=== PATIENT | female | born 1945 | race Caucasian/White ===

== ENCOUNTER → 2018-08-04 10:55 | Outpatient (CLI) | payer MEDICARE, OTHER, SELFPAY ==
--- NOTE | 2018-08-04 11:00 | DI.RAD.S_ITS ---
PROCEDURE: XR LUMBAR SPINE MIN 4V INDICATIONS: Foraminal stenosis with left L4 radiculopathy TECHNIQUE: 5 views of the lumbar spine were acquired. COMPARISON: None. FINDINGS: Bones: 5 nonrib-bearing vertebrae are present. There is mild rotational sclerosis. There is straightening of lumbar curvature with loss of normal lordosis. Grade 1 anterolisthesis of L2 on L3 and L3 on L4. No vertebral body compression fractures. No suspicious bony lesions. There is severe degenerative disc disease with disc space narrowing, endplate sclerosis and degenerative spurring at L2-L3, L3-L4 and L4-L5. Severe facet arthropathy is present at L4-L5 and L5-S1. Large lateral osteophytes are noted at L2-L3, L3-L4 and L4-L5. Soft tissues: Overlying bowel gas pattern is normal. No suspicious soft tissue calcifications. Oblique images: No pars defects. IMPRESSION: Severe degenerative disc and facet disease in lumbar spine. Dictated by: Jean-Pierre Jurado M.D. on 08/04/2018 at 13:44 Approved by: Jean-Pierre Jurado M.D. on 08/04/2018 at 14:27
== END ==
PROVIDERS: Visit Provider Physical Medicine & Rehabilitation
DX: M51.16 Intervertebral disc disorders with radiculopathy, lumbar region (principal); M51.17 Intervertebral disc disorders with radiculopathy, lumbosacral region; M47.26 Other spondylosis with radiculopathy, lumbar region; M47.27 Other spondylosis with radiculopathy, lumbosacral region; M99.83 Other biomechanical lesions of lumbar region
CPT/HCPCS: 72110; 99214

== ENCOUNTER → 2018-08-17 10:18 | Outpatient (CLI) | payer MEDICARE, OTHER, SELFPAY ==
--- NOTE | 2018-08-17 10:21 | DI.MRI.S_ITS ---
PROCEDURE: MR LUMBAR SPINE WO CON INDICATIONS: Foraminal stenosis with left L4 radiculopathy TECHNIQUE: Noncontrast sagittal T1 spin echo and T2 fast echo, sagittal STIR, axial T1 and T2 fast spin echo through the lumbar spine. In cases with scoliosis, additional coronal T2 fast spin echo may be performed. COMPARISON: [facility], CR, XR LUMBAR SPINE MIN 4V, 08/04/2018, 10:49. FINDINGS: Image quality: Excellent. Alignment and Curvature: There is mild grade 1 anterolisthesis at the L2-L3 level. No definite associated pars defects are seen. Minimal to mild anterolisthesis is seen at L3-L4. Minimal retrolisthesis is seen at L4-L5. Bone Marrow: Marrow is of normal overall signal. No acute vertebral body compression fractures. Spinal Cord: Conus medullaris terminates at the L1 level. Visualized cord demonstrates normal signal and size. Paraspinous Soft Tissues: No paravertebral masses. T12-L1: The disc height is well-preserved. Loss of disc signal is seen at this level. Mild generalized disc bulge is seen. There is mild left-sided and no significant right-sided neural foraminal narrowing seen. No significant central canal narrowing is seen. L1-L2: The disc height is well-preserved. Loss of disc signal is seen at this level. Mild to moderate disc bulge is seen. Moderate facet joint hypertrophy is seen. There is moderate bilateral neural foraminal narrowing seen, left worse than right. Moderate central canal narrowing is seen. L2-L3: Moderate to severe loss of disc height and disc signal are seen. Endplate irregularity is seen. Reactive marrow endplate changes are seen, which demonstrate mixed T1 weighted and T2-weighted signal, and are attributed to a combination of edema and fatty metaplasia (Modic type I and Modic type II changes). Moderate generalized disc bulge is seen is seen, which is eccentric to the left. Prominent facet hypertrophy is seen, with associated moderate hypertrophy of the ligamentum flavum. There is moderate right-sided and moderate to severe left-sided neural foraminal narrowing seen. Mass effect with flattening can be seen upon the exiting left L2 nerve root. There is severe central canal narrowing seen, as on series 5 image 14. L3-L4: Moderate to severe loss of disc height and disc signal can be seen on the right side. Endplate irregularity is seen. Reactive marrow endplate changes are seen, which demonstrate mixed T1 weighted and T2-weighted signal, and are attributed to a combination of edema and fatty metaplasia (Modic type I and Modic type II changes). Moderate to prominent disc bulge is seen, which is eccentric to the right side. There is moderate to severe bilateral neural foraminal narrowing seen, right worse than left. There is a degree of impingement seen upon the exiting nerve roots. Severe central canal narrowing is seen, as on series 5 image 19. L4-L5: Moderate to severe loss of disc height and disc signal are seen. Endplate irregularity is seen. Small Schmorl's nodes are seen at the inferior endplate of L4, without acute features. Moderate prominence disc bulge is seen, which is eccentric to the right. There is at least moderate left-sided and moderate to severe right-sided neural foraminal narrowing seen. There is a degree of impingement seen upon the exiting nerve roots. There is at least moderate central canal narrowing seen. L5-S1: The disc height is well-preserved. Loss of disc signal is seen at this level. Mild to moderate disc bulge is seen. Mild to moderate facet hypertrophy is seen. There is moderate right-sided and mild left-sided neural foraminal narrowing seen. Mild central canal narrowing is seen. IMPRESSION: Multiple levels of lumbar spine degenerative change are seen, which are most prominent at the L2-L3 and L3-L4 levels. Dictated by: Jose López M.D. on 08/17/2018 at 11:56 Approved by: Jose López M.D. on 08/17/2018 at 12:04
== END ==
PROVIDERS: Visit Provider Physical Medicine & Rehabilitation
DX: M51.16 Intervertebral disc disorders with radiculopathy, lumbar region (principal); M51.17 Intervertebral disc disorders with radiculopathy, lumbosacral region; M48.07 Spinal stenosis, lumbosacral region; M48.061 Spinal stenosis, lumbar region without neurogenic claudication; M99.83 Other biomechanical lesions of lumbar region
CPT/HCPCS: 72148

== ENCOUNTER 2018-09-20 13:03 | Outpatient (CLI) | payer MEDICARE, OTHER, SELFPAY ==
[2018-09-20] VITALS (8 sets, daily range): BP systolic 89–162; BP diastolic 33–68; PULSE 67–75; RESP 14–18; TEMP 36.2; O2SAT 96–100
--- NOTE | 2018-09-20 13:08 | DI.RAD.S_ITS ---
PROCEDURE: PAIN L INTERLAMINAR/CAUDAL INJ INDICATIONS: RADICULOPATHY FINDINGS: Fluoroscopic spot filming was performed to verify placement of spinal needles at the L3-L4 level(s), as labeled on the films. Appropriate location(s) of the needle tip(s) was confirmed by injection of iodinated contrast. IMPRESSION: Fluoroscopy for pain management. Dictated by: Jean-Pierre Jurado M.D. on 09/20/2018 at 17:18 Approved by: Jean-Pierre Jurado M.D. on 09/20/2018 at 17:19
[2018-09-20] MEDS: MIDAZOLAM 5 MG/5 ML VIAL IV (14:09)
[2018-09-20] MEDS: methylPREDNISolone acetate 80 MG/ML VIAL INJ (14:13)
[2018-09-20] MEDS: DEXAMETHASONE 10 MG/ML VIAL 20 MG INJ (14:13)
[2018-09-20] MEDS: IOPAMIDOL 15 ML VIAL 3 ML INJ (14:13)
[2018-09-20] MEDS: BUPIVACAINE 0.25% (PF) VIAL 2 ML INJ (14:13)
--- NOTE | 2018-09-20 14:16 | PC.NURSE ---
assisting pt off table and transporting to post proc area in stable condition
--- NOTE | 2018-09-20 14:19 | P.PCN_ITS ---
Procedures Date/Time Date of procedure: 09/20/18 Time of procedure: 14:19 General Procedure description: POST OP DIAGNOSIS 1. HNP WITH RADICULAR FEATURES, 2. MULTILEVEL CENTRAL STENOSIS, PROCEDURES 1. FLUORSCOPICALLY GUIDED CONTRAST CONTROLLED INTERLAMINAR EPIDURAL STEROID INJECTION - Para Left L3/4 PHYSICIAN: Micah Hernández DO INDICATIONS Fide is referred by DEBORAH Newell for treatment of Bilateral Foraminal Stenosis L >R LE symptoms. FINDINGS Multilevel Central Spinal Stenosis with Nerve Root Compression DESCRIPTION OF PROCEDURE Fluoroscopically guided, contrast-controlled L3/4 translaminar epidural steroid injection. Following denial of allergy and review of potential side effects and complications, including, but not necessarily limited to, infection, allergic reaction, local tissue breakdown, temporary as well as permanent nerve injury, paralysis, stroke and possible , the patient indicated that the patient understood and agreed to proceed. An informed consent document was signed by the patient, witnessed by a nurse, and placed in the patient's chart. Additionally, other treatment options including modalities, medications, and physical therapy were reviewed with the patient. After review of previous anaesthesic history and IV conscious sedation the patient was deemed safe to proceed with todays procedure with IV conscious sedation as ASA class II designation. Safety time-out was performed to confirm patient ID, procedure to be performed and site of procedure. IV sedation was accomplished with a combination of 2mg was administered by the RN after DO order , titrated to patient comfort during the course of the procedure while the patient remained responsive to all verbal commands. In the prone position, following sterile prep and drape of the lumbar region, the L3/4 translaminar space was identified fluoroscopically. The skin was anesthetized via a 25-gauge, 1.5-inch needle with 1% lidocaine solution. At this point, a 22-gauge short bevel spinal needle was atraumatically introduced and advanced under fluoroscopic guidance into the region of the L3/4 translaminar space. Depth was confirmed on lateral view. Radiological data, including multiple fluoroscopic views of the lumbar spine, reveal a spinal needle at the L3/4 translaminar space. Lateral views then show placement of the needle in the epidural space. Subsequent views show contrast material flowing superiorly and inferiorly in the epidural space. No vascular or intrathecal uptake is observed. At this point, using loss of resistance technique with saline and air, the epidural space was entered. This was confirmed following negative aspiration with injection of approximately 1.5 cc of Isovue 200, showing excellent epidural flow without vascular or intrathecal uptake. At this point, 1 cc of 1 % lidocaine solution combined with 3 cc or 20 mg of dexamethasone and 80mg Depo medrol was injected without incident. The patient tolerated the procedure well without signs or symptoms of complications prior to transfer to the recovery area continued monitoring without incident. The patient was then transferred to the recovery area where they were observed for an appropriate period of time after the injection. The patient reported a VAS score of 6 prior to the procedure and a post- procedure VAS of 0. Total Fluoroscopy Time: 11.8 seconds Total Conscious Sedation Time: 24min POST OP INSTRUCTIONS The patient was provided a Pain Log to continue to record their response to the target-specific procedure prior to follow-up visit with their referring physician. Additionally, specific post-injection care instructions and a contact number to our office were provided if concerns arise regarding possible complications associated with the procedure are suspected. Micah Hernández, Complications: none
--- NOTE | 2018-09-20 14:30 | PC.NURSE ---
received pt from Ninfa BRAXTON, pt awake and stable able to move from w/c to chair, resumed monitoring.
--- NOTE | 2018-09-21 12:46 | PC.NURSE ---
FOLLOW UP CALL MADE, PT DENIES PAIN AT THIS TIME AND THANKED THE TEAM FOR HER CARE. DENIES QUESTIONS/CONCERNS AT THIS TIME.
== END 2018-09-20 14:48 ==
LOC: RAD 13:08
PROVIDERS: Visit Provider Physical Medicine & Rehabilitation
DX: M51.16 Intervertebral disc disorders with radiculopathy, lumbar region (principal); M48.061 Spinal stenosis, lumbar region without neurogenic claudication; M99.83 Other biomechanical lesions of lumbar region
CPT/HCPCS: 62323; 99152; J1040; J1100; J2250